=== PATIENT | female | born 1990 | race Caucasian/White ===

== ENCOUNTER 2017-01-06 18:23 | Emergency (ER) | payer OTHER, SELFPAY ==
[~2017-01-06 18:23] MED LIST: BUDEPRION SR150 MG PO; KLONOPIN0.5 MG PO; MIRENA; NORCO 5/325 TAB1 TAB PO; ORTHO TRI-7 DAYS X PO; PEPCID20 MG PO; PRENATAL1 EACH PO; PROVENTIL HFA6.7 GM INH; PULMICORT180 MCG/AE INH; TRAMADOL HCL50 MG PO; VITAMIN D-50000 IU/C PO; ZOFRAN ODT4 MG/UDTAB PO; ZOLOFT50 MG PO
[2017-01-06] MEDS ORDERED: WELLBUTRIN XL300 M3 PO (18:39)
[2017-01-06] MEDS ORDERED: VALIUM10 M1 PO (18:39)
[2017-01-06] MEDS ORDERED: VISTARIL25 M1 PO (18:40)
[2017-01-06 19:27] LABS: BASO % 0.4 % (0-2); EOS % 1.5 % (0-7); EOSINOPHIL ABSOLUTE COUNT 0.1 tho/cmm (0.0-0.7); HCT-HEMATOCRIT 38.7 % (34.0-49.0); HGB-HEMOGLOBIN 13.4 gm/dl (12.0-15.5); IMMATURE GRANULOCYTES ABSOLUTE 0.01 tho/cmm (0-0.03); IMMATURE GRANULOCYTES PERCENT 0.1 % (0-0.3); LYMPH % 29.6 % (20-45); LYMPH ABSOLUTE COUNT 2.2 tho/cmm (0.8-4.5); MCHC MEAN CORPUSCULAR HGB CONC 34.6 % (32.0-36.0); MCV (MEAN CELL VOLUME) 83.8 fl (82.0-96.0); MONO % 6.1 % (0-12); MONOCYTE ABSOLUTE COUNT 0.5 tho/cmm (0.0-1.2); NEUTROPHIL ABSOLUTE COUNT 4.7 tho/cmm (1.6-8.0); NEUTROPHIL-AUTOMATED 4.7 tho/cmm (1.6-8.0); NEUTROPHILS % 62.3 % (40-80); PLATELET COUNT 265 tho/cmm (150-450); RED BLOOD COUNT 4.62 mil/cmm (4.00-5.20); RED CELL DISTRIBUTION WIDTH 12.1 % (12.4-16.4); WHITE BLOOD COUNT 7.6 tho/cmm (4.0-10.0)
[2017-01-06 19:42] LABS: PREGNANCY-SERUM NEGATIVE (NEGATIVE)
[2017-01-06 20:00] LABS: ANION GAP 14 mmol/L (0-20); BLOOD UREA NITROGEN 10 mg/dl (6-24); CALCIUM 8.8 mg/dl (8.5-10.5); CARBON DIOXIDE-VENOUS 24 mmol/L (22-32); CHLORIDE 106 mmol/l (96-110); CREATININE 0.97 mg/dl (0.50-1.10); GLUCOSE 83 mg/dL (70-110); POTASSIUM 3.9 mmol/L (3.7-5.1); SODIUM 140 mmol/L (135-145); eGFR VALUE FOR BLACK >90 mL/Min
== END 2017-01-06 20:57 ==
LOC: EDMED 18:23
PROVIDERS: Emergency Medicine
DX: R07.9 Chest pain, unspecified (principal); J45.909 Unspecified asthma, uncomplicated; F41.9 Anxiety disorder, unspecified
CPT/HCPCS: J1885